=== PATIENT | female | born 1985 | race Caucasian/White ===

== ENCOUNTER 2023-10-30 09:33 | Day surgery (SDC) | payer SELFPAY ==
[2023-10-30] VITALS (11 sets, daily range): BP systolic 122–156; BP diastolic 58–116; PULSE 62–99; RESP 13–19; TEMP 35.7–36.7; O2SAT 96–100; BMI 33.2
--- NOTE | 2023-10-30 09:58 | EXP.UTC ---
Discharge Plan Referrals Follow up/Referrals: Janeth Obregon APRN [Primary Care Provider] - See instructions Clinical Impressions Clinical Impression: Abdominal pain, acute, right lower quadrant Discharge ED Provider: Debbi Little [facility] [place] General Stated complaint: abd pain Time Seen by Provider: 10/30/23 10:33 History of Present Illness Provider Complaint: RLQ pain woke her up this am. Pain was 8-9/10. Took shower, had a bowel movement, tried to see if pain would resolve. Pain has perhaps dulled some, but still 6-7. Mostly located RLQ, radiates slightly to center. Just finished period a few days ago. No fever. Nausea, but no vomiting. Hurts to stand up straight or lay flat. History of ovarian cyst as a teenager. H/O left ectopic and subsequent left salpingectomy. Onset (ago): hour(s) (4) Location: abdomen and pelvis Radiation: abdomen Severity: severe Severity scale (1-10): 8 Quality: stabbing and sharp Relieving factors: none Exacerbating factors: movement Associated symptoms: nausea/vomiting Treatments prior to arrival: none Related Data Allergies Allergy/AdvReac Type Severity Reaction Status Date / Time No Known Allergies Allergy Verified 10/30/23 10:14 [facility] Disclaimer: The information contained in this section may have been updated after the patient was seen, as this information can be updated by other users. Medical History (Updated 10/30/23 @ 10:44 by KIERSTEN Champion) Depression Anxiety Migraine Surgical History (Updated 10/30/23 @ 10:16 by Maryjane Theodore RN) H/O tubal ligation Social History Smoking Status: Never smoker alcohol intake: never current occupational status: employed Travel in the last 8 weeks: None ROS Obtained: Yes All systems reviewed & no additional complaints except as documented Gastrointestinal Gastrointestingal: Reports abdominal pain and nausea Physical Exam General General appearance: alert and other (uncomfortable) Respiratory Respiratory exam: Present normal lung sounds bilaterally Cardiovascular Cardiovascular exam: Present regular rate and normal rhythm Abdominal Exam Abdominal exam: Present tenderness and guarding Abdominal tenderness: Present RLQ and moderate Extremities Exam Extremities exam: Present normal inspection Neurological Exam Neurological exam: Present alert and oriented X3 Skin Skin exam: Present warm and dry Medical Decision Making Ernie Inquiry Pt receiving controlled substance: No Lab Data Lab results reviewed: Yes I reviewed the patient's lab results. Urinalysis, UPT negative Will transfer to ER for further workup of RLQ pain
[2023-10-30 10:27] LABS: UTC Pregnancy Test, Urine Negative (Negative)
[2023-10-30 10:28] LABS: Apearance,Urine Slightly Cloudy (Clear); Blood, Urine Negative (Negative); Color,Urine Yellow (Yellow); Glucose,Urine (UA) Negative (Negative); Ketones,Urine Negative (Negative); Protein,Urine Negative (Negative); Specific Gravity, Urine > 1.030 (1.005-1.030)
[2023-10-30 10:29] LABS: Bilirubin,Urine Negative (Negative); UTC Leukocyte Esterase,Urine Trace (Negative); UTC Nitrate,Urine Negative (Negative); Urobilinogen,Urine 0.2 EU/dl (0.2)
--- NOTE | 2023-10-30 10:54 | CT_ITS ---
FINAL REPORT TECHNIQUE: Axial images through the abdomen and pelvis were performed. This study was performed with techniques to keep radiation doses as low as reasonably achievable, (ALARA). Individualized dose reduction techniques using automated exposure control or adjustment of mA and/or kV according to the patient's size were employed. CLINICAL HISTORY: RLQ pain COMPARISON: None FINDINGS: Abdomen: No acute density is seen within the lung bases. The gallbladder is unremarkable. Solid abdominal organs are unremarkable. No bowel obstruction is present. There is no free air. No fluid collection is seen. There is no adenopathy. Pelvis: The appendix is borderline enlarged measuring up to 7 mm in thickness, with mild surrounding stranding. There is an appendicolith at the base of the appendix. No bowel wall thickening is present. There is no free fluid. No pelvic mass is seen. IMPRESSION: Appendix is borderline enlarged, up to 7 mm in size, with mild surrounding stranding and an appendicolith at the base, suspicious for mild early appendicitis. Reviewed, Interpreted and Dictated by Kavitha Epps MD Transcribed by Radha Adkins Authenticated and [facility]
[2023-10-30] MEDS: LORazepam 2MG/ML VIAL 1 MG IV (11:31)
--- NOTE | 2023-10-30 11:33 | PC.NURSE ---
PT TO CT
[2023-10-30 11:36] LABS: Alanine Aminotransferase 28 U/L (12-78); Albumin Level 4.7 g/dl (3.5-5.0); Albumin/Globulin Ratio 1.3 (1.1-1.8); Alkaline Phosphatase 103 U/L (38-126); Aspartate Amino Transferase 32 U/L (14-36); Bilirubin,Total 0.7 mg/dl (0.2-1.3); Blood Urea Nitrogen 13 mg/dl (7-17); Calcium 9.7 mg/dl (8.4-10.2); Carbon Dioxide 26 mmol/L (22.0-30.0); Chloride 104 mmol/L (98-107); Creatinine Clearance Estimated 95 mL/min (50-200); Estimated Glomerular Filt Rate 62 ml/min (>60); GFR (African American) 75 ML/MIN (>60); Globulin 3.5 g/dL (1.3-3.2); Glucose 99 mg/dl (74-100); Lipase 106 U/L (23-300); Sodium 140 mmol/L (136-145); Total Protein,Serum 8.2 g/dl (6.3-8.2)
[2023-10-30 11:38] LABS: Basophils # 0.2 K/mm3 (0-0.2); Eosinophils # 0.2 K/mm3 (0.0-0.4); Hematocrit 47.3 % (37.0-47.0); Hemoglobin 15.3 g/dL (12.2-16.2); Lymphocytes % 10.2 % (10-50); Mean Corpuscular HGB Conc 32.3 g/dL (31.8-35.4); Mean Corpuscular Hemoglobin 29.7 pg (27.0-31.2); Mean Platelet Volume 8.1 fl (7.4-10.4); Monocytes # 0.6 K/mm3 (0.1-1.0); Monocytes % 3.2 % (1.7-9.3); Neutrophils # 16.6 K/mm3 (1.8-7.8); Neutrophils % 84.6 % (37.0-80.0); Platelet Count 451 K/mm3 (142-424); Red Blood Count 5.14 M/mm3 (4.20-5.40); Red Cell Distribution Width 13.6 % (11.5-17.5); White Blood Count 19.6 K/mm3 (4.8-10.8)
--- NOTE | 2023-10-30 11:41 | HMH.EDGENADL ---
Discharge Plan Disposition Patient Disposition: Admitted Condition: Fair Clinical Impressions Clinical Impression: Abdominal pain, acute, right lower quadrant, Acute appendicitis Discharge ED Provider: Elmer Nava General Adult HPI General Chief complaint: Abdominal Pain Stated complaint: abd pain Time Seen by Provider: 10/30/23 10:33 Mode of Arrival: Ambulatory Source of Information: Patient Limitations: No Limitations Description of Symptoms (Recalled from ER Triage Doc. by RN): pt reports abdominal pain began this morning, sharp pains in right side, nausea, migraine. tender to palpation History of Present Illness HPI narrative: Please note that above description of symptoms, in this electronic medical record under categorization of recalled from ER triage doctor by RN are reflective of an initial nursing assessment, however, is not reflective of my full history and physical exam that was personally taken and clarified. Consequentially, this preceding description of symptoms, which may include the patient's categorized chief complaint in the EMR, do not reflect my personal clinical impression, and the ultimate description of history of present illness and patient stated complaints should be deferred to this section of the note. Unless stated otherwise or congruent with this section of the note, additional signs, symptoms, or incongruence should be interpreted as inaccurate with my clinical impression. Onset (ago): hour(s) (4) Location: abdomen and pelvis Severity: severe Severity scale (1-10): 8 Quality: stabbing and sharp Relieving factors: none Exacerbating factors: movement Associated symptoms: nausea/vomiting Treatments prior to arrival: none Related Data Allergies Allergy/AdvReac Type Severity Reaction Status Date / Time No Known Allergies Allergy Verified 10/30/23 10:14 [facility] Disclaimer: The information contained in this section may have been updated after the patient was seen, as this information can be updated by other users. Medical History (Updated 10/30/23 @ 13:56 by Elmer Nava MD) Depression Anxiety Migraine Surgical History (Updated 10/30/23 @ 10:16 by Maryjane Theodore RN) H/O tubal ligation Social History (Updated 10/30/23 @ 10:44 by KIERSTEN Champion) Smoking Status: Never smoker alcohol intake: never current occupational status: employed Travel in the last 8 weeks: None ROS Obtained: Yes All systems reviewed & no additional complaints except as documented Physical Exam General General appearance: alert and other (uncomfortable) Head Head exam: atraumatic and normocephalic Eye Eye exam: Present normal appearance, PERRL and EOMI ENT ENT exam: Present mucous membranes moist Neck Neck exam: Present normal inspection, full ROM and trachea midline Respiratory Respiratory exam: Absent respiratory distress, wheezes, stridor, accessory muscle use or prolonged expiratory phase Cardiovascular Cardiovascular exam: Present regular rate and normal rhythm Abdominal Exam Abdominal exam: Present soft, tenderness, guarding and tenderness at McBurney's Point; Absent distention, rebound, rigidity, Banegas's sign or Rovsing's sign Abdominal tenderness: Present RLQ and mild Extremities Exam Extremities exam: Absent edema Neurological Exam Neurological exam: Present alert, oriented X3, CN II-XII intact and normal gait; Absent motor sensory deficit Skin Skin exam: Present warm and dry; Absent diaphoresis or erythema Medical Decision Making Medical Records Medical records reviewed: Yes I reviewed the patient's medical records. Ernie Inquiry Pt receiving controlled substance: No Ernie was queried for this patient: No Vital Signs: 10/30/23 10:10 10/30/23 10:43 10/30/23 10:46 Temperature 98.1 F 98.1 F Temperature Source Oral Oral Pulse Rate 93 H Pulse Rate [Right] 82 87 Respiratory Rate 16 16 Blood Pressure 145/116 H Blood Pressure [Right Arm] 147/96 H 145/116 H Blood Pressure Mean [Right Arm] 113 125 Blood Pressure Source [Right Arm] Automatic Cuff Blood Pressure Position [Right Arm] Sitting 02 Sat by Pulse Oximetry 97 100 96 Oxygen Delivery Method Room Air Room Air Room Air 10/30/23 13:17 Temperature 98.0 F Temperature Source Pulse Rate 90 Pulse Rate [Right] Respiratory Rate 13 Blood Pressure 156/99 H Blood Pressure [Right Arm] Blood Pressure Mean [Right Arm] Blood Pressure Source [Right Arm] Blood Pressure Position [Right Arm] 02 Sat by Pulse Oximetry Oxygen Delivery Method Lab Data Lab Results 10/30/23 10:00: Urine Color Yellow, Urine Appearance Clear, Urine pH 6.0, Ur Specific Icard 1.025, Urine Protein Negative, Urine Glucose (UA) Negative, Urine Ketones Negative, Urine Blood Negative, Urine Nitrate Negative, Urine Bilirubin Negative, Urine Urobilinogen 0.2, Ur Leukocyte Esterase 1+ A, Urine RBC None, Urine WBC 3-5, Ur Squamous Epith Cells 3-5, Urine Bacteria 1+ 10/30/23 10:16: Urine Color Yellow, Urine Appearance Slightly cloudy, Urine pH 6.0, Ur Specific Icard > 1.030 H, Urine Protein Negative, Urine Glucose (UA) Negative, Urine Ketones Negative, Urine Blood Negative, Urine Nitrate Negative, Urine Bilirubin Negative, Urine Urobilinogen 0.2, Ur Leukocyte Esterase Trace 10/30/23 10:26: [facility] Clinic Negative 10/30/23 11:20: WBC 19.6 H, RBC 5.14, Hgb 15.3, Hct 47.3 H, MCV 92.0, MCH 29.7, MCHC 32.3, RDW 13.6, Plt Count 451 H, MPV 8.1, Neut % (Auto) 84.6 H, Lymph % (Auto) 10.2, Harper % (Auto) 3.2, Eos % (Auto) 1.0, Baso % (Auto) 1.0, Neut # (Auto) 16.6 H, Lymph # (Auto) 2.0, Harper # (Auto) 0.6, Eos # (Auto) 0.2, Baso # (Auto) 0.2, Total Counted 100, Neutrophils % (Manual) 88 H, Lymphocytes % (Manual) 12, Platelet Estimate Slight increase, RBC Morphology Normal, Sodium 140, Potassium 4.0, Chloride 104, Carbon Dioxide 26, Anion Gap 14.0, BUN 13, Creatinine 1.00, Estimated Creat Clear 95, Estimated GFR 62, Est GFR ( Amer) 75, Glucose 99, Calcium 9.7, Total Bilirubin 0.7, AST 32, ALT 28, Alkaline Phosphatase 103, C-Reactive Protein 4.5 H, Total Protein 8.2, Albumin 4.7, Globulin 3.5 H, Albumin/Globulin Ratio 1.3, Lipase 106, HCG, Quant < 2 10/30/23 11:20 10/30/23 11:20 Orders (Tests/Meds): ED MEDICATIONS Generic Name Dose Route Start Last Admin Trade Name Freq PRN Reason Stop Dose Admin Ceftriaxone Sodium 2 gm/ 100 mls @ 200 mls/hr 10/30/23 13:51 Sodium Chloride IV 10/30/23 14:20 ONCE ONE Metronidazole 500 mg in 100 mls @ 100 mls/hr 10/30/23 13:51 Flagyl 500mg/100ml Ivpb IV 10/30/23 14:50 ONCE ONE Sodium Chloride 10 ml 10/30/23 11:21 Sodium Chloride 0.9% 10ml Vial IV 11/29/23 11:20 NEEDED PRN to Dilute Lorazepam inj Discontinued Medications Generic Name Dose Route Start Last Admin Trade Name Jonahq PRN Reason Stop Dose Admin Acetaminophen 1,000 mg 10/30/23 10:53 10/30/23 11:52 Acetaminophen 1,000mg/100ml Vial IV 10/30/23 10:54 1,000 mg ONCE ONE Administration Lactated Ringer's 1,000 mls @ 999 mls/hr 10/30/23 10:53 10/30/23 11:53 Lactated Ringer's 1000 Ml Bag IV 10/30/23 11:53 999 mls/hr .Q1H1M ONE Administration Ampicillin Sodium/Sulbactam 100 mls @ 200 mls/hr 10/30/23 13:00 Sodium 3 gm/ Sodium Chloride IV 10/30/23 13:01 ONCE ONE Iopamidol 75 ml 10/30/23 11:49 10/30/23 11:50 Iopamidol-370 (76%);100ml Bottle IV 10/30/23 11:50 75 ml ONCE ONE Administration Ketorolac Tromethamine 15 mg 10/30/23 10:53 10/30/23 11:53 Ketorolac 30mg/Ml Vial IV 10/30/23 10:54 15 mg ONCE ONE Administration Lorazepam 1 mg 10/30/23 11:21 10/30/23 11:31 Lorazepam 2mg/Ml Vial IV 10/30/23 11:22 1 mg ONCE ONE Administration Sodium Chloride 10 ml 10/30/23 11:49 10/30/23 11:50 Sodium Chloride 0.9% 10ml Syr (Rad Only) IV 10/30/23 11:50 10 ml ONCE ONE Administration ORDERS Category Date Time Status CT abdomen pelvis w con Stat Cat Scan 10/30/23 10:54 Completed CBC w/Auto Diff [Complete Blood Count Auto Diff] Stat Lab 10/30/23 11:20 Completed CMP [Comprehensive Metabolic Panel] Stat Lab 10/30/23 11:20 Completed CRP [C-Reactive Protein] Stat Lab 10/30/23 11:20 Completed HCG,Quantitative Stat Lab 10/30/23 11:20 Completed Lipase Stat Lab 10/30/23 11:20 Completed UA [Urinalysis and Microscopic] Stat Lab 10/30/23 10:00 Completed Urine Culture Stat Micro 10/30/23 10:00 Received Medical Decision Narrative: 38-year-old female history of left-sided ectopic status post salpingectomy, ovarian cysts, lysis of adhesions presenting with right lower quadrant pain. Patient states that right lower quadrant pain woke her up around 6 AM this morning, 10/29. Right lower quadrant, does not radiate, associated with nausea without vomiting, decreased p.o. intake/appetite. Patient states the pain is worse with changes in position, worse with walking, better at rest. Seems to be progressive in nature. Moderate in intensity when not applying pressure, severe in intensity when applying pressure and significantly more uncomfortable. Denies chance of , last menstrual period just ended. History was obtained via conversation with patient. On arrival, patient hemodynamically stable, alert, oriented x4, appropriate, GCS 15, moving all extremities spontaneously, pupils equal and reactive to light. Full physical exam performed and significant for well-appearing girl who is in no acute distress, but has moderate to severe pain with application pressure in right lower quadrant. Not splinting or guarding, but definitely appears uncomfortable. Primarily over McBurney's point. No right upper quadrant tenderness. Left lower quadrant nontender, suprapubic region nontender. No overlying skin changes. Patient mildly hypertensive, nontachycardic, afebrile. Differential includes ovarian torsion, ovarian cyst rupture, appendicitis, cholecystitis, diverticulitis, enteritis, IBS versus IBD, nephrolithiasis, UTI, , ectopic , among others. Ultrasound-guided IV was placed. Patient was given Toradol, acetaminophen, fluids for symptomatic management and correction of underlying abnormalities. Workup independently interpreted and significant for leukocytosis 20,000 with neutrophilia. Patient CRP only mildly elevated 4.5. hCG negative, lipase negative. CT abdomen pelvis with acute appendicitis with appendicolith and borderline enlarged appendix. See radiology read for full review of final results. On reevaluation, patient's pain is much better, but still present. Results were relayed to her, voices understanding. Given patient presentation, workup, history, this most likely represents acute appendicitis. Because patient high risk for clinical decompensation, deemed appropriate for inpatient admission. Results were relayed to patient who voiced understanding and patient was agreeable to inpatient admission and management. Patient was admitted to the hospital for further definitive management. [employer] disclaimer Much of this encounter note is an electronic running instructor spoken language to printed text. Electronic running instructor of the spoken language may permit errors. Although I have reviewed the note, some errors may still exist. Critical Care Critical Care Time Critical Care Time: Yes (GI) Attestation: On 10/30/23, the high probability of a clinically significant, sudden or life threatening deterioration of the following system(s) required my full and direct attention, intervention and personal management. The time I documented below is in addition to time spent performing reported procedures but includes the following listed in this critical care notation. Total Time Total Critical Care Time: 35
[2023-10-30 11:42] LABS: C-Reactive Protein 4.5 mg/L (0-4)
[2023-10-30 11:44] LABS: MANUAL DIFFERENTIAL MANUAL DIFFERENTIAL (MANUAL DIFF)
[2023-10-30 11:44] LABS: Microscopic, Urine URINE MICROSCOPIC (MICROSCOPIC)
[2023-10-30 11:46] LABS: Appearance,Urine CLEAR (Clear); Bilirubin,Urine Negative (Negative); Blood, Urine Negative (Negative); Color,Urine YELLOW (Yellow); Glucose,Urine (UA) Negative (Negative); Ketones,Urine Negative (Negative); Leukocyte Esterase,Urine 1+ (Negative); Nitrate,Urine Negative (Negative); Protein,Urine Negative (Negative); Specific Gravity, Urine 1.025 (1.005-1.030); Urobilinogen,Urine 0.2 EU/dl (0.2)
[2023-10-30] MEDS: SODIUM CHLORIDE 0.9% 10ML SYR (RAD ONLY) 10 ML IV (11:50)
[2023-10-30] MEDS: IOPAMIDOL-370 (76%);100ML BOTTLE 75 ML IV (11:50)
[2023-10-30] MEDS: ACETAMINOPHEN 1,000MG/100ML VIAL 1000 MG IV (11:52)
[2023-10-30] MEDS: LACTATED RINGERS 1000ML 1,000 ML 999 ML IV (11:53)
[2023-10-30] MEDS: KETOROLAC 30MG/ML VIAL 15 MG IV (11:53)
[2023-10-30 11:58] LABS: HCG,Quantitative < 2 mIU/ml (0-5.42)
[2023-10-30 11:58] LABS: Bacteria,Urine 1+ /lpf
[2023-10-30 12:31] LABS: Lymphocytes % 12 % (10-50); Neutrophils % 88 % (42-76); Total Cells Counted 100
[2023-10-30 12:32] LABS: Platelet Estimate Slight Increase; RBC Morphology Normal
--- NOTE | 2023-10-30 12:49 | PC.NURSE ---
DR SUH PAGED
--- NOTE | 2023-10-30 12:52 | PC.NURSE ---
DR HERNANDEZ AT BEDSIDE TO UPDATE PT
--- NOTE | 2023-10-30 12:59 | PC.NURSE ---
DR HERNANDEZ SPEAKING WITH DR SUH
--- NOTE | 2023-10-30 14:02 | P.PNANES_ITS ---
[facility] Disclaimer: The information contained in this section may have been updated after the patient was seen, as this information can be updated by other users. Medical History (Updated 10/30/23 @ 13:56 by Elmer Nava MD) Depression Anxiety Migraine Surgical History (Updated 10/30/23 @ 10:16 by Maryjane Theodore RN) H/O tubal ligation Social History (Updated 10/30/23 @ 10:44 by KIERSTEN Champion) Smoking Status: Never smoker alcohol intake: never substance use type: denies use current occupational status: employed Travel in the last 8 weeks: None [facility] Anesthesia Checklist Patient Identification Patient Identification: Arm Band, Family and Verbal (Name & ) Structural Data Admitted From: Emergency Dept Planned Operative Procedure/s: Lap. appy Consent for Planned Operative Procedure(s) Verified: Yes Verified Documents: Surgical Consent and History and Physical NPO Status Verified Time NPO: 02:00 Chart Verification Results Verified: CBC, BMP and Chest Xray (CT) Additional verifications Patient : No (HCG <0.2) Anesthesia Reactions: No Cardiovascular Assessment Heart Sounds: S1 & S2 Pulse Rhythm: Irregular Peripheral Edema: No Airway Assessment Mallampati Score:: Class II C-Spine Mobility Assessed: Yes (FROM) TMJ Mobility Assessed: Yes Dentition: Good Dentition (Nothing loose per pt.) Neurological Assessment Level of Consciousness: Awake, Alert, Appropriate and Follows Commands Hx Seizures: No Numbness or tingling in extremities: No Anesthesia Plan Anesthesia Risk discussed: Yes Anesthesia Plan: Verified ASA Class: II Anesthesia Type: General
[2023-10-30] MEDS: METRONIDAZ/SOD CHL 500 MG/100 ML PIGGYBACK 100 MG IV (14:25)
[2023-10-30] MEDS: CEFTRIAXONE SODIUM 2 GM in 0.9 % SODIUM CHLORIDE 100 ML IV (14:30)
[2023-10-30] MEDS: LIDOCAINE 1% 20ML MDV 20 ML (14:55)
--- NOTE | 2023-10-30 15:32 | P.OP_ITS ---
Date of procedure: 10/30/23 Pre-op Diagnosis:: Appendicitis Post-op Diagnosis:: Same Procedure performed:: Laparoscopic appendectomy Surgeon:: Maurice Lu MD [employer] DIRECTOR:: Karley Hoffman Anesthesia: GETA Estimated blood loss (mL): 15 Operative findings:: Enlarged/inflamed appendix with no evidence of perforation Operative note:: After informed consent was obtained the patient was taken to the operating room and placed in the supine position. General anesthesia was induced and her abdomen was prepped and draped in a sterile fashion. After infiltration with local anesthetic a small stab incision was placed in the left upper quadrant (left upper quadrant Veress needle placement deemed most safe secondary to prior operative intervention in lower abdomen/pelvis). A Veress needle was placed in position. The abdomen was insufflated. A 5 mm optical trocar was placed in the left upper quadrant. Under direct visualization a 12 mm trocar was placed below the umbilicus and an additional 5 mm trocar was placed in the suprapubic position. The incision at the suprapubic site was overlying a prior complex retracted scar (scar excised to allow trocar placement). The right lower quadrant was evaluated. No obvious purulent pockets or evidence of perforation noted. The appendix was carefully elevated. The appendix was somewhat inflamed and enlarged. The mesoappendix was taken with harmonic kings. An Endopath 45 stapling device was used to transect the appendix at its base. The appendix was placed in a retrieval bag and removed through the infraumbilical trocar site. The right lower quadrant was thoroughly irrigated. No bleeding or evidence of injury noted. Fascia at the infraumbilical trocar site was reapproximated utilizing the Neoclose device. Pneumoperitoneum was released as the trocars we re removed. All wounds were irrigated and skin was reapproximated with 4-0 Monocryl in an interrupted mattress fashion to facilitate hemostasis. Dressings were applied and the patient was transferred to recovery in stable condition after extubation. Condition: stable Disposition: PACU Specimens:: Appendix Complications:: No immediate
--- NOTE | 2023-10-30 15:46 | EXP.ANES.I ---
[facility] Anesthesia Record Part I Anesthesia Record I Intake, IV Amount: 700 Hydration: Adequate Estimated blood loss (mL): 25 Urine output (mL): 150 Blood Products used (#): none Blood Pressure: 137/58 SaO2: 100 Pulse Rate: 85 Airway Patency: Patent Respiratory Rate: 16 Temperature: 96.2 F Patient is:: Awake (Talking) and Stable Stable to PACU at:: 15:45
[2023-10-30 15:50] LABS: Microscopic,Cath URINE MICROSCOPIC (MICROSCOPIC)
[2023-10-30 15:54] LABS: Appearance,Urine/Cath CLEAR (Clear); Bilirubin,Cath Negative (Negative); Blood, Urine/Cath Negative (Negative); Color,Urine/Cath YELLOW (Yellow); Glucose,Urine/Cath (UA) Negative (Negative); Ketones,Urine/Cath Negative (Negative); Leukocyte Esterase,Cath Negative (Negative); Nitrate,Cath Negative (Negative); PH,Urine/Cath 7.5 (5.0-8.5); Protein,Urine/Cath Negative (Negative); Urobilinogen,Cath 0.2 EU/dl (0.2)
[2023-10-30] MEDS: ONDANSETRON 4MG/2ML VIAL 4 MG IV (16:10)
--- NOTE | 2023-11-02 14:42 | P.PNANES_ITS ---
[facility] Anesthesia Record Part II Anesthesia Record Part II Discharge Time: 16:03 Destination: Surgical Day Care (OP Surgery) PACU nurse assessment reviewed?: Yes Patient Condition:: Good Anesthesia Complications:: None Swallowing reflex intact?: Yes Airway Patency: Patent Cyanosis?: No Blood Pressure: 132/94 SaO2: 99 Respiratory Rate: 18 Pulse Rate: 72 Temperature: 97.2 F Mental Status: Alert & Oriented Pain level:: 0 Nausea and/or vomitting:: None Intake, IV Amount: 600 Hydration: Adequate
[2023-11-02 14:43] VITALS: BP 132/94; PULSE 72; RESP 18; TEMP 36.2; O2SAT 99
== END 2023-10-30 16:40 | disposition home or self-care (01) ==
LOC: UTC 10:34 → ER 10:46 → SDC 13:19
PROVIDERS: Physician Assistant; Emergency Provider Emergency Medicine; PCP Nurse Practitioner Family; Visit Provider Surgery
PROC: 0DTJ4ZZ Resection of Appendix, Percutaneous Endoscopic Approach (ICD-10-PCS; CPT 44970; principal; 2023-10-30 13:45)
DX: K35.80 Unspecified acute appendicitis (principal)
CPT/HCPCS: 44970; 74177; 80053; 81001; 81003; 81025; 83690; 84702; 85007; 85025; 86140; 87086; 96374; J0131; J0696; J1885; J2060; J2250; J2405; J2710; J3010; J7120; Q9967